=== PATIENT | male | born 2000 ===

== ENCOUNTER 2025-01-02 17:59 | Emergency (ER) | payer OTHER ==
[~2025-01-02] VITALS: Ht 172.7 cm; Wt 72.6 kg
== END 2025-01-02 23:11 | disposition home or self-care (01) ==
LOC: ER 17:59
DX: S82.62XA Displaced fracture of lateral malleolus of left fibula, initial encounter for closed fracture (principal); X58.XXXA Exposure to other specified factors, initial encounter
CPT/HCPCS: 73610; 99283-25